=== PATIENT | male | born 2000 | race African-American/Black ===

== ENCOUNTER 2022-04-10 20:54 | Emergency (ER) | payer MEDICAID ==
[~2022-04-10] VITALS: Ht 165.1 cm; Wt 65.5 kg
[2022-04-10 22:01] VITALS: BP 125/74
[2022-04-11] MEDS ORDERED: ACETAMINOPHEN 325MG TABLET PO STA (01:47)
[2022-04-11] MEDS ORDERED: ALBUTEROL (0.083%) 2.5MG/3ML NEB HHN STA (01:47)
[2022-04-11] MEDS ORDERED: SODIUM CHLORIDE 0.9% 1,000 ML IV ONE (02:00)
[2022-04-11 03:11] LABS: CHLORIDE 107 mEq/L (98-107)
[2022-04-11 03:16] LABS: BASOPHILS % 0.5 % (0.0-2.0); HEMATOCRIT. 44.1 % (42.0-52.0); HEMOGLOBIN. 15.1 g/dL (14.0-18.0); LYMPHOCYTES % 30.1 % (20.0-50.0); MEAN CORPUSCULAR HEMOGLOBIN 30.2 pg (28.0-32.0); MEAN CORPUSCULAR VOLUME 88.2 fL (80.0-94.0); MONOCYTES % 11.8 % (2.0-8.0); NEUTROPHILS % 57.6 % (40.0-76.0); PLATELET 156 x1000/uL (130-400); RED BLOOD CELL COUNT 4.99 mill/uL (4.7-6.1); RED CELL DISTRIBUTION WIDTH 12.3 % (11.6-14.6)
[2022-04-11] MEDS ORDERED: POTASSIUM CHLORIDE 20MEQ TABLET SR PO NR (03:30)
[2022-04-11] MEDS ORDERED: ALBU90AE INH (04:14)
== END 2022-04-11 05:50 | disposition home or self-care (01) ==
LOC: ER 20:54
DX: B34.9 Viral infection, unspecified (principal); J45.909 Unspecified asthma, uncomplicated; F12.10 Cannabis abuse, uncomplicated; Z20.822 Contact with and (suspected) exposure to COVID-19
CPT/HCPCS: 36415; 71045; 80053; 85025; 87426; 87804; 94640; 96360; 99284; C9803; J7030; Z7610

== ENCOUNTER 2025-06-05 07:07 | Emergency (ER) | payer SELFPAY ==
[~2025-06-05] VITALS: Ht 167.6 cm; Wt 70.0 kg
[~2025-06-05 07:07] MED LIST: ALBU90AE INH
[2025-06-05 07:21] VITALS: O2SAT 100
[2025-06-05 07:57] LABS: BASOPHILS % 0.6 % (0.0-2.0); EOSINOPHILS % 2.4 % (0.0-5.0); HEMATOCRIT. 42.6 % (36.0-48.0); HEMOGLOBIN. 14.1 g/dL (12.0-16.0); LYMPHOCYTES % 41.8 % (20.0-50.0); MEAN PLATELET VOLUME 7.1 fl (7.4-10.4); MONOCYTES % 10.2 % (2.0-8.0); NEUTROPHILS % 45.0 % (40.0-76.0); PLATELET 215 x1000/uL (130-400); RED BLOOD CELL COUNT 4.61 mill/uL (4.2-5.4); RED CELL DISTRIBUTION WIDTH 12.9 % (11.6-14.6)
[2025-06-05] MEDS: KETOROLAC 30MG/ML VIAL IV ONE (08:00)
[2025-06-05] MEDS: TETANUS, DIPHTHERIA, PERTUSSIS VAC/PF 0.5ML (>10YR OLD) IM ONE (08:00)
[2025-06-05 08:09] LABS: INR 1.0
[2025-06-05 08:17] LABS: CREATININE 1.1 mg/dL (0.6-1.0); UREA NITROGEN BLOOD 7 mg/dL (9-23)
[2025-06-05] MEDS ORDERED: IOHEXOL-300 100 ML BOTTLE ONE (11:03)
[2025-06-05 13:00] VITALS: BP 114/74; PULSE 68; RESP 18; TEMP 36.7; O2SAT 100
== END 2025-06-05 13:17 | disposition home or self-care (01) ==
LOC: EDSEX 07:41 → ER 07:41
DX: S09.8XXA Other specified injuries of head, initial encounter (principal); F64.0 Transsexualism; V89.2XXA Person injured in unspecified motor-vehicle accident, traffic, initial encounter; Y93.89 Activity, other specified; Y92.410 Unspecified street and highway as the place of occurrence of the external cause; Y99.8 Other external cause status
CPT/HCPCS: 99291; 70450; 96374; 80048; 83690; 85025; 85610; 85730; 86850; 86900; 86901; 36415; 71045; 72170; 71260; 72125; 74177; 90715; 90471; J1885; Q9967